=== PATIENT | female | born 1985 | race Caucasian/White ===

== ENCOUNTER 2016-11-15 23:03 | Inpatient (IN) | payer BC ==
[~2016-11-15] VITALS: Ht 165.1 cm; Wt 74.1 kg
[~2016-11-15 23:03] MED LIST: DOCUSATE SODIU100 MG PO; MOTRIN800 MG PO; PERCOCET 5/31 TABLET PO; PRENATAL VITAM1 EAC3 PO
[2016-11-15 23:45] LABS: EOSINOPHIL (%) 1.1 % (0-5); EOSINOPHIL COUNT 0.1 K/uL (0-0.3); HEMATOCRIT 35.6 % (36.0-46.0); IMMATURE GRANULOCYTE (%) 0.9 % (0.0-0.7); IMMATURE GRANULOCYTE COUNT 0.1 K/uL; INSTRUMENT ABS NEUTROPHIL CT 5.4 K/uL; LYMPHOCYTE COUNT 2.5 K/uL (1.0-2.8); MCH 28.8 PG (29.0-34.0); MCHC 33.1 G/DL (30.0-36.0); MCV 86.8 FL (83-99); MEAN PLAT.VOLUME 12.3 uM^3 (9.5-12.4); MONOCYTE (%) 8.8 % (3-12); MONOCYTE COUNT 0.8 K/uL (0-0.8); NEUTROPHIL COUNT 5.4 K/uL (1.8-6.4); PLATELET COUNT 136 K/uL (156-360); RBC DIS.WIDTH-CV 12.8 % (11.8-14.6); WHITE BLOOD COUNT 8.9 K/uL (4.1-10.2)
[2016-11-15 23:51] VITALS: BP 134/76
[2016-11-16] VITALS (16 sets, daily range): BP systolic 106–178; BP diastolic 53–117
[2016-11-16] MEDS ORDERED: IBUPROFEN800 MG PO (01:15)
[2016-11-17 23:00] VITALS: BP 117/67
[2016-11-18 07:43] VITALS: BP 124/69
== END 2016-11-18 12:57 | disposition home or self-care (01) | DRG 775 ==
LOC: LDRP-OP 23:03 → 2WEST 23:04 → LDRP-OP 12-20 10:39
PROVIDERS: Nurse Practitioner
DX: O70.1 Second degree perineal laceration during delivery (principal); O99.824 Streptococcus B carrier state complicating childbirth; O35.8XX0 Maternal care for other (suspected) fetal abnormality and damage, not applicable or unspecified; Z37.0 Single live birth; Z3A.39 39 weeks gestation of pregnancy
CPT/HCPCS: 85025; C1755; G0378; J0290; J3010; J7050; J7120